=== PATIENT | female | born 2000 | race Caucasian/White ===

== ENCOUNTER 2022-02-05 21:14 | Inpatient (IN) | payer OTHER ==
[~2022-02-05] VITALS: Ht 165.1 cm; Wt 64.8 kg
[2022-02-05 23:59] LABS: COVID AG,FIA SOURCE NASOPHARYNGEAL
[2022-02-06 00:03] LABS: BASOPHILS % (AUTO) 0.8 % (0.0-2.0); EOSINOPHILS % (AUTO) 0 % (1.0-6.0); HEMATOCRIT 44.3 % (36-46); HEMOGLOBIN 15.1 g/dL (12.0-16.0); LYMPHOCYTES # (AUTO) 1.9 K/uL (1.0-4.8); LYMPHOCYTES % (AUTO) 31.5 % (22.0-44.0); MEAN CORPUSCULAR HGB CONC 34.1 G/dL (31.0-37.0); MEAN CORPUSCULAR VOLUME 94 fL (80-100); MONOCYTES # (AUTO) 0.4 K/uL (0.1-1.0); MONOCYTES % (AUTO) 7.1 % (2.0-9.0); NEUTROPHILS # (AUTO) 3.7 K/uL (1.8-7.7); NEUTROPHILS % (AUTO) 60.6 % (40.0-70.0); PLATELET COUNT (AUTO) 293 K/uL (150-450); RED BLOOD CELL COUNT(AUTO) 4.72 MIL/uL (4.00-5.20)
[2022-02-06 00:11] LABS: ANION GAP 9 mmol/L (8-16); CALCIUM, TOTAL 8.9 mg/dL (8.8-10.5); CARBON DIOXIDE 29 mmol/L (22-29); CHLORIDE 107 mmol/L (98-107); CREATININE 0.66 mg/dL (0.60-1.30); GLUCOSE,RANDOM 95 mg/dL (70-110); POTASSIUM 3.9 mmol/L (3.5-5.1); SODIUM SERUM 145 mmol/L (136-145); UREA NITROGEN, BLOOD 7 mg/dL (7-18)
[2022-02-06 00:12] LABS: GLOMERULAR FILTR. RATE CALC > 60 mL/min (>60)
[2022-02-06 00:18] LABS: ALANINE AMINOTRANSFERASE 22 U/L (12-78); ALBUMIN 3.6 g/dL (3.4-5.0); ALKALINE PHOSPHATASE 100 U/L (46-116); ASPARTATE AMINOTRANSFERASE 26 U/L (15-37); BILIRUBIN,TOTAL 0.6 mg/dL (0.1-1.0); TOTAL PROTEIN, SERUM 7.1 g/dL (6.4-8.2)
[2022-02-06 00:21] LABS: SALICYLATE 0.4 mg/dL (2.8-20.0)
[2022-02-06 00:58] LABS: ACETAMINOPHEN 217 mcg/mL (10-30)
[2022-02-06] MEDS ORDERED: WATER IV ONE ×3 (01:45→06:45)
[2022-02-06] MEDS ORDERED: ACETYLCYSTEINE IV ONE ×3 (01:45→06:45)
[2022-02-06] MEDS ORDERED: DEXTROSE 5% IV ONE ×3 (01:45→06:45)
[2022-02-06] MEDS ORDERED: ACETAMINOPHEN 325 MG TABLET PO PRN ×2 (02:00→18:15)
[2022-02-06] MEDS ORDERED: ONDANSETRON HCL 4 MG/2 ML VIAL IVP PRN ×2 (02:00→18:15)
[2022-02-06] MEDS ORDERED: BACITRACIN 0.9 GM PACKET OINTMENT TP ONE (02:30)
[2022-02-06 11:10] LABS: AMPHET/METH SCREEN,URINE NEGATIVE (NEGATIVE); BARBITURATE SCREEN, URINE NEGATIVE (NEGATIVE); BENZODIAZEPINES SCREEN,URINE NEGATIVE (NEGATIVE); CANNABINOID SCREEN,URINE NEGATIVE (NEGATIVE); COCAINE SCREEN,URINE NEGATIVE (NEGATIVE); METHADONE SCREEN, URINE NEGATIVE (NEGATIVE); OPIATE SCREEN,URINE NEGATIVE (NEGATIVE)
[2022-02-06 11:12] LABS: PHENCYCLIDINE SCREEN,URINE NEGATIVE (NEGATIVE)
[2022-02-06 18:14] LABS: BASOPHILS % (AUTO) 0.5 % (0.0-2.0); EOSINOPHILS % (AUTO) 0.1 % (1.0-6.0); HEMATOCRIT 41.7 % (36-46); HEMOGLOBIN 14.3 g/dL (12.0-16.0); LYMPHOCYTES # (AUTO) 1.5 K/uL (1.0-4.8); LYMPHOCYTES % (AUTO) 21.5 % (22.0-44.0); MEAN CORPUSCULAR HGB CONC 34.3 G/dL (31.0-37.0); MEAN CORPUSCULAR VOLUME 93 fL (80-100); MONOCYTES # (AUTO) 0.5 K/uL (0.1-1.0); MONOCYTES % (AUTO) 6.8 % (2.0-9.0); NEUTROPHILS % (AUTO) 71.1 % (40.0-70.0); PLATELET COUNT (AUTO) 292 K/uL (150-450); RED BLOOD CELL COUNT(AUTO) 4.47 MIL/uL (4.00-5.20); RED CELL DISTRIBUTION WIDTH 11.9 % (11.5-14.5)
[2022-02-06] MEDS ORDERED: MAGNESIUM HYDROXIDE SUSPENSION 30 ML UDCUP PO PRN (18:15)
[2022-02-06] MEDS ORDERED: IPRATROPIUM BROMIDE 0.5 MG/2.5 ML NEB SOLUTION NEB PRN (18:15)
[2022-02-06] MEDS ORDERED: MORPHINE SULFATE 2 MG/ML SYRINGE IVP PRN (18:15)
[2022-02-06] MEDS ORDERED: ZOLPIDEM TARTRATE 5 MG TABLET PO PRN (18:15)
[2022-02-06] MEDS ORDERED: BISACODYL 10 MG RECTAL RECTAL SUPPOSITORY PR PRN (18:15)
[2022-02-06] MEDS ORDERED: HYDROCODONE/ACETAMINOPHEN 5-325 MG TABLET PO PRN (18:15)
[2022-02-06] MEDS ORDERED: ALBUTEROL SULFATE 2.5 MG/0.5 ML NEB SOLUTION NEB PRN (18:15)
[2022-02-06 18:25] LABS: PROTHROMBIN TIME 11.1 SEC (9.4-11.6)
[2022-02-06 18:27] LABS: ANION GAP 6 mmol/L (8-16); CALCIUM, TOTAL 9.1 mg/dL (8.8-10.5); CARBON DIOXIDE 29 mmol/L (22-29); CHLORIDE 104 mmol/L (98-107); CREATININE 0.69 mg/dL (0.60-1.30); GLUCOSE,RANDOM 132 mg/dL (70-110); POTASSIUM 3.1 mmol/L (3.5-5.1); SODIUM SERUM 139 mmol/L (136-145); UREA NITROGEN, BLOOD 7 mg/dL (7-18)
[2022-02-06 18:32] LABS: ALANINE AMINOTRANSFERASE 24 U/L (12-78); ALBUMIN 3.1 g/dL (3.4-5.0); ALKALINE PHOSPHATASE 90 U/L (46-116); ASPARTATE AMINOTRANSFERASE 26 U/L (15-37); BILIRUBIN,TOTAL 0.7 mg/dL (0.1-1.0); TOTAL PROTEIN, SERUM 6.5 g/dL (6.4-8.2)
[2022-02-06 18:34] LABS: ACETAMINOPHEN < 2 mcg/mL (10-30); GLOMERULAR FILTR. RATE CALC > 60 mL/min (>60)
[2022-02-06] MEDS ORDERED: POTASSIUM CHLORIDE 20 MEQ ER TABLET PO ONE (19:15)
[2022-02-06] MEDS ORDERED: HALOPERIDOL 5 MG TABLET PO PRN (20:00)
[2022-02-06] MEDS ORDERED: LORazepam 2 MG TABLET PO PRN (20:00)
[2022-02-06 20:09] LABS: APPEARANCE,URINE CLEAR (CLEAR); BILIRUBIN,URINE NEGATIVE (NEGATIVE); GLUCOSE, URINE (UA) NEGATIVE (NEGATIVE); KETONES,URINE =>150 mg/dL (NEGATIVE); LEUKOCYTE ESTERASE ,URINE NEGATIVE (NEGATIVE); NITRATE,URINE NEGATIVE (NEGATIVE); OCCULT BLOOD,URINE NEGATIVE (NEGATIVE); SPECIFIC GRAVITIY, URINE 1.043 (1.003-1.030); UROBILINOGEN,URINE <=1.0 mg/dL (<=1.0)
[2022-02-06 20:15] LABS: PROTEIN,URINE NEGATIVE (NEGATIVE)
[2022-02-06] MEDS: ZOLPIDEM TARTRATE 10 MG TABLET PO PRN (22:50)
[2022-02-07] MEDS: PANTOPRAZOLE SODIUM 40 MG DR TABLET PO SCH (09:48)
[2022-02-07 23:15] VITALS: BP 125/75
[2022-02-08] MEDS: ZOLPIDEM TARTRATE 10 MG TABLET PO PRN ×2 (00:35→22:21)
[2022-02-08 08:00] VITALS: BP 93/54
[2022-02-08] MEDS: PANTOPRAZOLE SODIUM 40 MG DR TABLET PO SCH (12:29)
[2022-02-08] MEDS: BACITRACIN 28 GM OINTMENT TP SCH ×6 (12:29→16:26)
[2022-02-08] MEDS: SERTRALINE HCL 50 MG TABLET PO SCH (12:31)
[2022-02-08 16:00] VITALS: BP 90/59
[2022-02-09] MEDS: PANTOPRAZOLE SODIUM 40 MG DR TABLET PO SCH (08:20)
[2022-02-09] MEDS: SERTRALINE HCL 50 MG TABLET PO SCH (08:20)
[2022-02-09 08:33] VITALS: BP 109/54
[2022-02-09] MEDS: BACITRACIN 28 GM OINTMENT TP SCH ×6 (10:12→16:16)
[2022-02-09 16:17] VITALS: BP 102/82
[2022-02-09] MEDS: ZOLPIDEM TARTRATE 10 MG TABLET PO PRN (22:55)
[2022-02-09 22:59] VITALS: BP 110/69
[2022-02-10 08:12] VITALS: BP 95/56
[2022-02-10] MEDS: PANTOPRAZOLE SODIUM 40 MG DR TABLET PO SCH (08:26)
[2022-02-10] MEDS: SERTRALINE HCL 50 MG TABLET PO SCH (08:26)
[2022-02-10] MEDS: BACITRACIN 28 GM OINTMENT TP SCH ×6 (10:00→16:37)
[2022-02-10 16:24] VITALS: BP 98/60
[2022-02-10] MEDS ORDERED: SERT-439 PO (20:08)
== END 2022-02-10 17:15 | disposition home or self-care (01) | DRG 885 ==
LOC: EMS 21:19 → 3EC 02-07 21:08
PROVIDERS: ADMIT Psychiatry & Neurology Psychiatry; ATTEND Psychiatry & Neurology Psychiatry
DX: F33.2 Major depressive disorder, recurrent severe without psychotic features (principal); T39.1X2A Poisoning by 4-Aminophenol derivatives, intentional self-harm, initial encounter; I10 Essential (primary) hypertension; F10.20 Alcohol dependence, uncomplicated; X78.1XXA Intentional self-harm by knife, initial encounter; Y90.6 Blood alcohol level of 120-199 mg/100 ml; S41.112A Laceration without foreign body of left upper arm, initial encounter; Z20.822 Contact with and (suspected) exposure to COVID-19; I95.9 Hypotension, unspecified; E87.6 Hypokalemia; K21.9 Gastro-esophageal reflux disease without esophagitis; Z91.51 Personal history of suicidal behavior; Z91.52 Personal history of nonsuicidal self-harm; Y93.89 Activity, other specified; Y92.098 Other place in other non-institutional residence as the place of occurrence of the external cause; Y99.8 Other external cause status
CPT/HCPCS: 80053; 81003; 83735; 84132; 84703; 85025; 85610; 99285; G0480; G0481; J0132; J2405; J7060

== ENCOUNTER 2022-07-21 02:23 | Inpatient (IN) | payer OTHER ==
[~2022-07-21] VITALS: Ht 165.1 cm; Wt 64.2 kg
[~2022-07-21 02:23] MED LIST: SERT-439 PO
[2022-07-21] MEDS ORDERED: PERTUSS(ACELL),DIPH,TET VAC/PF 0.5 ML SYRINGE IM. ONE (02:45)
[2022-07-21] MEDS ORDERED: BACITRACIN 0.9 GM PACKET OINTMENT TP ONE (02:45)
[2022-07-21 02:57] LABS: COVID AG,FIA SOURCE NASOPHARYNGEAL
[2022-07-21 02:59] LABS: BASOPHILS % (AUTO) 1.1 % (0.0-2.0); EOSINOPHILS % (AUTO) 1.4 % (1.0-6.0); HEMATOCRIT 40.1 % (36-46); HEMOGLOBIN 13.7 g/dL (12.0-16.0); LYMPHOCYTES # (AUTO) 2.5 K/uL (1.0-4.8); LYMPHOCYTES % (AUTO) 43.5 % (22.0-44.0); MEAN CORPUSCULAR HEMOGLOBIN 31.6 pg (26.0-34.0); MEAN CORPUSCULAR HGB CONC 34.2 G/dL (31.0-37.0); MEAN CORPUSCULAR VOLUME 92 fL (80-100); MONOCYTES # (AUTO) 0.5 K/uL (0.1-1.0); MONOCYTES % (AUTO) 8.2 % (2.0-9.0); NEUTROPHILS # (AUTO) 2.6 K/uL (1.8-7.7); NEUTROPHILS % (AUTO) 45.8 % (40.0-70.0); PLATELET COUNT (AUTO) 290 K/uL (150-450); RED BLOOD CELL COUNT(AUTO) 4.34 MIL/uL (4.00-5.20); RED CELL DISTRIBUTION WIDTH 12.5 % (11.5-14.5)
[2022-07-21 03:09] LABS: ANION GAP 12 mmol/L (8-16); CALCIUM, TOTAL 8.5 mg/dL (8.8-10.5); CARBON DIOXIDE 22 mmol/L (22-29); CHLORIDE 110 mmol/L (98-107); CREATININE 0.55 mg/dL (0.60-1.30); GLOMERULAR FILTR. RATE CALC > 60 mL/min (>60); GLUCOSE,RANDOM 94 mg/dL (70-110); POTASSIUM 3.4 mmol/L (3.5-5.1); SODIUM SERUM 144 mmol/L (136-145); UREA NITROGEN, BLOOD 11 mg/dL (7-18)
[2022-07-21 03:14] LABS: ALANINE AMINOTRANSFERASE 28 U/L (12-78); ALBUMIN 3.6 g/dL (3.4-5.0); ALKALINE PHOSPHATASE 104 U/L (46-116); ASPARTATE AMINOTRANSFERASE 19 U/L (15-37); BILIRUBIN,TOTAL 0.2 mg/dL (0.1-1.0)
[2022-07-21 03:26] LABS: AMPHET/METH SCREEN,URINE NEGATIVE (NEGATIVE); BARBITURATE SCREEN, URINE NEGATIVE (NEGATIVE); BENZODIAZEPINES SCREEN,URINE NEGATIVE (NEGATIVE); CANNABINOID SCREEN,URINE NEGATIVE (NEGATIVE); COCAINE SCREEN,URINE NEGATIVE (NEGATIVE); METHADONE SCREEN, URINE NEGATIVE (NEGATIVE); OPIATE SCREEN,URINE NEGATIVE (NEGATIVE); PHENCYCLIDINE SCREEN,URINE NEGATIVE (NEGATIVE)
[2022-07-21] MEDS ORDERED: LORazepam 2 MG TABLET PO PRN (06:00)
[2022-07-21] MEDS ORDERED: OLANZapine 5 MG RAPDIS TABLET PO PRN (06:00)
[2022-07-21 11:48] VITALS: BP 101/64
[2022-07-21] MEDS ORDERED: PNEUMOCOCCAL VACCINE POLYVALENT 0.5 ML VIAL [PPSV23] IM. ONE (14:30)
[2022-07-21] MEDS ORDERED: ACETAMINOPHEN 325 MG TABLET PO PRN ×2 (15:15→23:00)
[2022-07-21] MEDS ORDERED: IBUPROFEN 600 MG TABLET PO PRN (15:15)
[2022-07-21 16:26] VITALS: BP 100/64
[2022-07-21 20:20] VITALS: BP 100/65
[2022-07-21] MEDS ORDERED: POTASSIUM CHLORIDE 20 MEQ ER TABLET PO ONE (21:15)
[2022-07-21] MEDS ORDERED: PROMETHAZINE HCL 25 MG TABLET PO PRN (23:00)
[2022-07-21] MEDS ORDERED: TUBERCULIN, PURIFIED PROTEIN DERIVATIVE 5 TU/0.1 ML SYRINGE ID ONE (23:00)
[2022-07-21] MEDS ORDERED: HydrOXYzine PAMOATE 50 MG CAPSULE PO PRN (23:00)
[2022-07-21] MEDS ORDERED: LOPERAMIDE HCL 2 MG CAPSULE PO PRN (23:00)
[2022-07-21] MEDS ORDERED: MAG HYDROX/AL HYDROX/SIMETH ES 30 ML SUSPENSION UDCUP PO PRN (23:00)
[2022-07-21] MEDS ORDERED: GuaiFENesin/D-METHORPHAN [SUGAR-FREE] 200-20MG/10 ML SYRUP UDCUP PO PRN (23:00)
[2022-07-21] MEDS ORDERED: MAGNESIUM HYDROXIDE SUSPENSION 30 ML UDCUP PO PRN (23:00)
[2022-07-22] MEDS: ZOLPIDEM TARTRATE 10 MG TABLET PO PRN ×2 (00:33→21:27)
[2022-07-22 05:58] LABS: HEMOGLOBIN A1C 5.1 % (3.8-5.6)
[2022-07-22 06:02] LABS: ANION GAP 9 mmol/L (8-16); CALCIUM, TOTAL 8.6 mg/dL (8.8-10.5); CARBON DIOXIDE 23 mmol/L (22-29); CHLORIDE 106 mmol/L (98-107); CREATININE 0.58 mg/dL (0.60-1.30); GLOMERULAR FILTR. RATE CALC > 60 mL/min (>60); GLUCOSE,RANDOM 86 mg/dL (70-110); POTASSIUM 3.9 mmol/L (3.5-5.1); SODIUM SERUM 138 mmol/L (136-145); UREA NITROGEN, BLOOD 12 mg/dL (7-18)
[2022-07-22 06:23] LABS: CHOL/HDL RATIO 2.4 (3.9-5.7)
[2022-07-22 07:33] LABS: FREE T4 (FREE THYROXINE) 0.89 ng/dL (0.76-1.46); THYROID STIMULATING HORMONE 1.4 uIU/mL (0.36-3.74)
[2022-07-22 08:26] VITALS: BP 101/57
[2022-07-22] MEDS: FOLIC ACID 1 MG TABLET PO SCH (08:30)
[2022-07-22] MEDS: NALTREXONE HCL 50 MG TABLET PO SCH (08:30)
[2022-07-22] MEDS: FLUoxetine HCL 20 MG CAPSULE PO SCH (08:30)
[2022-07-22] MEDS: MULTIVITAMINS WITH MINERALS, THERAPEUTIC TABLET PO SCH (08:30)
[2022-07-22] MEDS: OMEGA-3/DHA/EPA/FISH OIL 1,000 MG CAPSULE PO SCH (08:30)
[2022-07-22] MEDS: THIAMINE 100 MG TABLET PO SCH ×2 (08:31→16:29)
[2022-07-22] MEDS: TOPIRAMATE 25 MG TABLET PO SCH ×3 (08:32→16:28)
[2022-07-22 16:09] VITALS: BP 106/63
[2022-07-22] MEDS ORDERED: TOPI25 PO (20:22)
[2022-07-22] MEDS ORDERED: MELA5TAB40 PO (20:22)
[2022-07-22] MEDS ORDERED: FLUO20CA36 PO (20:22)
[2022-07-22] MEDS ORDERED: NALT50TA PO (20:22)
[2022-07-22] MEDS ORDERED: OMEG-135 PO (20:22)
[2022-07-22] MEDS ORDERED: MELATONIN 5 MG TABLET PO SCH (21:00)
[2022-07-23 08:08] VITALS: BP 106/73
[2022-07-23] MEDS: NALTREXONE HCL 50 MG TABLET PO SCH (08:44)
[2022-07-23] MEDS: MULTIVITAMINS WITH MINERALS, THERAPEUTIC TABLET PO SCH (08:44)
[2022-07-23] MEDS: OMEGA-3/DHA/EPA/FISH OIL 1,000 MG CAPSULE PO SCH (08:44)
[2022-07-23] MEDS: FLUoxetine HCL 20 MG CAPSULE PO SCH (08:45)
[2022-07-23] MEDS: FOLIC ACID 1 MG TABLET PO SCH (08:45)
[2022-07-23] MEDS: THIAMINE 100 MG TABLET PO SCH (08:45)
[2022-07-23] MEDS: TOPIRAMATE 25 MG TABLET PO SCH (08:50)
== END 2022-07-23 16:53 | disposition home or self-care (01) | DRG 885 ==
LOC: EMS 02:24 → B3A 06:00 → 3EC 11:41
PROVIDERS: ADMIT Psychiatry & Neurology Psychiatry; ATTEND Psychiatry & Neurology Psychiatry
PROC: 3E0234Z Introduction of Serum, Toxoid and Vaccine into Muscle, Percutaneous Approach (ICD-10-PCS; principal; 2022-07-21)
DX: F33.2 Major depressive disorder, recurrent severe without psychotic features (principal); R45.851 Suicidal ideations; Z20.822 Contact with and (suspected) exposure to COVID-19; E87.6 Hypokalemia; F10.10 Alcohol abuse, uncomplicated; X78.8XXA Intentional self-harm by other sharp object, initial encounter; S51.811A Laceration without foreign body of right forearm, initial encounter; S51.812A Laceration without foreign body of left forearm, initial encounter; F17.200 Nicotine dependence, unspecified, uncomplicated; F41.9 Anxiety disorder, unspecified; Y90.8 Blood alcohol level of 240 mg/100 ml or more; Z55.9 Problems related to education and literacy, unspecified; Z59.9 Problem related to housing and economic circumstances, unspecified; Z63.9 Problem related to primary support group, unspecified; Z65.3 Problems related to other legal circumstances; Z91.52 Personal history of nonsuicidal self-harm; Z23 Encounter for immunization; Z79.899 Other long term (current) drug therapy; Y93.89 Activity, other specified; Y92.89 Other specified places as the place of occurrence of the external cause; Y99.8 Other external cause status
CPT/HCPCS: 80048; 80053; 80061; 80307; 83036; 84439; 84443; 84703; 85025; 86592; 90715; 99285; G0480; Q9967